=== PATIENT | female | born 1985 | race Caucasian/White ===

== ENCOUNTER 2017-03-15 10:54 | Emergency (ER) | payer OTHER ==
[2017-03-15] MEDS: IBUPROFEN 600 MG TABLET. PO (11:22)
== END 2017-03-15 11:43 | disposition home or self-care (01) ==
LOC: ER 10:54
DX: S60.032A Contusion of left middle finger without damage to nail, initial encounter (principal); W23.0XXA Caught, crushed, jammed, or pinched between moving objects, initial encounter; Y93.89 Activity, other specified; Y92.89 Other specified places as the place of occurrence of the external cause; Y99.8 Other external cause status
CPT/HCPCS: 29130; 73130; 99284-25